=== PATIENT | female | born 2000 | race Caucasian/White ===

== ENCOUNTER 2023-07-07 09:00 | Outpatient (CLI) | payer OTHER, SELFPAY ==
--- NOTE | 2023-07-07 09:15 | CRLHL7_ITS ---
For Patients: As a result of the Century Cures Act, medical imaging exams and procedure reports are released immediately into your electronic medical record. You may view this report before your referring provider. If you have questions, please contact your health care provider. CLINICAL HISTORY: Missing IUD string TECHNIQUE: Real time, holman scale images were acquired of the pelvis using a transabdominal and transvaginal approach. Color Doppler analysis was performed of the ovaries. FINDINGS: The uterus measures 7.1 x 3.3 x 3.8 centimeters IUD in the endometrial cavity in appropriate position. Unremarkable ovaries. Right ovary measures 3.5 x 2 x 2.1 centimeters. Left ovary measures 3 x 1.7 x 1.7 centimeters. Blood flow on color Doppler. IMPRESSION: IUD in the endometrial cavity in appropriate position. Dictated by Shae Sargent MD @ 07/09/2023 1:22:24 PM (Electronically Signed)
== END 2023-07-07 09:01 | disposition home or self-care (01) ==
LOC: US 09:01
PROVIDERS: Visit Provider Obstetrics & Gynecology
DX: T83.32XA Displacement of intrauterine contraceptive device, initial encounter (principal)
CPT/HCPCS: 76830

== ENCOUNTER 2024-04-19 08:19 | Outpatient (CLI) | payer OTHER, SELFPAY | END 2024-04-19 08:20 | disposition home or self-care (01) | PROVIDERS: Visit Provider Registered Nurse | DX: Z00.00 Encounter for general adult medical examination without abnormal findings (principal); R10.9 Unspecified abdominal pain; F32.81 Premenstrual dysphoric disorder; L03.90 Cellulitis, unspecified; Z13.6 Encounter for screening for cardiovascular disorders; Z13.29 Encounter for screening for other suspected endocrine disorder; Z13.0 Encounter for screening for diseases of the blood and blood-forming organs and certain disorders involving the immune mechanism | CPT/HCPCS: 80053; 80061; 83690; 84443 ==

== ENCOUNTER 2024-08-01 12:46 | Outpatient (CLI) | payer OTHER, SELFPAY | END 2024-08-01 12:47 | disposition home or self-care (01) | LOC: NFLDREF 08-04 20:12 | PROVIDERS: PCP Registered Nurse; Referring Provider Registered Nurse; Visit Provider Physician Assistant | DX: R39.9 Unspecified symptoms and signs involving the genitourinary system (principal); N39.0 Urinary tract infection, site not specified; N30.01 Acute cystitis with hematuria | CPT/HCPCS: 87086; 87186 ==